=== PATIENT | female | born 1970 | race Hispanic/Latino ===

== ENCOUNTER 2019-09-20 11:17 | Emergency (ER) | payer OTHER, SELFPAY ==
[2019-09-20 11:19] VITALS: BP 158/75; PULSE 85; RESP 16; TEMP 36.8; O2SAT 100; BMI 35.6
--- NOTE | 2019-09-20 11:40 | CT_ITS ---
STUDY: CTA HEAD AND NECK WITH CONTRAST REASON FOR EXAM: Female, 49 years old. LEFT SIDED NUMBNESS, NUMB TONGUE SINCE YESTERDAY, HASN''T FELT RIGHT FOR 2 WEEKS. RADIATION DOSAGE (If Supplied By Facility): CTDIvol = ( 25.50 ) mGy, DLP = ( 1440.24 ) mGycm TECHNIQUE: CT angiography was performed with a multi-detector CT scanner. Data acquisition was obtained from the skull base through the vertex following intravenous administration of IV 100 ML ISOVUE 370. MIP images were reconstructed from the axial data set. Post-processing of the angiographic images was performed, with multiplanar reformation and 3D reconstruction. Individualized dose optimization techniques were used for this CT. COMPARISON: No relevant priors. FINDINGS: Normal bilateral petrous carotid arteries. Normal right cavernous carotid artery with a normal supraclinoid bifurcation. Normal left cavernous carotid artery with a normal supraclinoid bifurcation. Normal right A1 segments of the anterior cerebral artery. Normal left A1 segments of the anterior cerebral artery. Normal intact anterior communicating artery (ACOM). Normal bilateral A2 segments of the anterior cerebral arteries. Normal right M1 and M2 segments of the middle cerebral arteries, with a normal M1 bifurcation. Normal left M1 and M2 segments of the middle cerebral arteries, with a normal M1 bifurcation. Normal right posterior communicating artery (PCOM). Normal left posterior communicating artery (PCOM). Normal bilateral vertebral arteries. Normal basilar artery with a normal basilar bifurcation. The visualized bilateral superior cerebellar (SCA) arteries are normal. Normal bilateral P1, P2 and visualized P3 segments of the posterior cerebral arteries. There is no demonstrated aneurysm of the [place] of [place]. There is no demonstrated abnormality of the visualized brain. AORTIC ARCH: Normal visualized aortic arch. Normal origins of the brachiocephalic, left common carotid, and left subclavian arteries. RIGHT CAROTID ARTERIES: Normal right common carotid artery (CCA). Normal right common carotid bulb. Normal origin of the right internal carotid (ICA) artery without a hemodynamically significant stenosis. Normal visualized cervical portion of the right internal carotid artery. Normal origin of the right external carotid artery (ECA). LEFT CAROTID ARTERIES: Normal left common carotid artery (CCA). Normal left common carotid bulb. Normal origin of the left internal carotid (ICA) artery without a hemodynamically significant stenosis. Normal visualized cervical portion of the left internal carotid artery. Normal origin of the left external carotid artery (ECA). VERTEBRAL ARTERIES: Normal bilateral vertebral arteries. CT/CTA Head AND Neck W/ Contrast IMPRESSION: Normal CTA Head and neck with contrast. Electronically Signed: Armin Crook, at 12:45 EST , Service support ,
--- NOTE | 2019-09-20 11:40 | EKG12_ITS ---
Test Reason : Blood Pressure : / mmHG Vent. Rate : 086 BPM Atrial Rate : 086 BPM P-R Int : 138 ms QRS Dur : 084 ms QT Int : 372 ms P-R-T Axes : 036 044 -07 degrees QTc Int : 445 ms Normal sinus rhythm ST & T wave abnormality, consider anterior ischemia Abnormal ECG Confirmed by SRAVAN MATHEWS, KANA ([id number]), film and video editor NITESH RABAGO ([id number]) on 09/24/2019 12:19:40 PM Referred By: [facility] Confirmed By:KANA HINSON MD
--- NOTE | 2019-09-20 11:46 | ED.DCSUM_ITS ---
- ER Visit Summary Date of Service: 09/20/19 Chief Complaint: Left-sided facial tingling History of Present Illness: The patient is a 49 F female without any significant past medical history that does not speak [place]. Her friend is here with her as an corporate general manager. He states the last couple weeks she has had subjective tingling left side of her face hand and foot. No weakness. No change in her speech. No visual change. No facial droop. She is also had some mild headaches. No recent trauma. No fever. No difficulty walking. No prior history. Physical Examination: Middle-aged female no acute distress vital signs stable afebrile. H EENT exam normal. Pupils are unreactive light. Extra motions are intact. No facial droop. She is able to wrinkle her forehead. She is able to smile symmetrically on both sides. Subjectively she states that this sensation on left side of her face is decreased compared to the right. TMs normal. Posterior pharynx normal. Neck nontender. No lymphadenopathy. Lungs clear to auscultation bilaterally. Heart regular rhythm no murmur. Abdomen is soft nontender. Normal bowel sounds no peritoneal signs. Extremities moves all 4. 5/5 trolley cleaner strength bilaterally. Dorsi plantarflexion intact. Fingertip to nose within normal limits bilaterally. [id number]-upls within normal limits bilaterally. Back exam unremarkable skin unremarkable. Neurologically her NIH score is 0-1 at worst. And that would be with subjective decreased sensation on left side of her face. There are absolutely no motor deficits. No ataxia. Test Results: EKG normal sinus rhythm rate 86 no acute abnormality. CTA of the neck read as normal by the radiologist and reviewed by me. CBC normal. Chemistries unremarkable. Glucose 166. Normal gap and creatinine. Emergency Department Course and Treatment: Middle-aged female with subjective left-sided tingling and possibly decreased sensation. No motor deficits. She will undergo a CTA of her head and neck and labs. Stanley exam doing well at 12:56 PM. Neurologic exam normal. No change in her findings. No facial droop. Normal motor strength both upper and lower extremities. Treatment Plan: Outpatient follow-up. Disposition: Discharge Impression: Subjective left sided paresthesia of uncertain etiology This note was generated with [employer] software. It may contain incorrect words, spelling, and punctuation that were not noted in review of the chart prior to signing ED Disposition - Plan for ED Patient: Referrals: Juan Robins,Samantha Boswell [Primary Care Provider] -
[2019-09-20] MEDS: 0.9% Normal Saline 1,000 ML 999 ML IV (11:58)
[2019-09-20 12:11] LABS: Absolute Lymphocyte Count 2.45 X10^3/uL (0.83-4.51); Absolute Neutrophil Count 4.5 X10^3/uL (2.0-7.7); Basophil# 0.04 X10^3/uL; Basophil% 0.5 % (0-1); Eosinophil# 0.15 X10^3/uL; Hematocrit 40.6 % (37-47); Hemoglobin 13.6 g/dL (12.0-15.0); Lymphocyte # 2.45 X10^3/ul (4.0); Lymphocyte % 32.7 % (19-41); Mean Corp Hgb Conc 33.5 g/dL (32-36); Mean Corpuscular Hgb 31.3 pg (27.0-32.0); Mean Corpuscular Volume 93.5 fL (81-99); Mean Platelet Vol. 10.1 fl (6.2-12.0); Monocyte# 0.39 X10^3/uL; Monocyte% 5.2 % (0-10); NRBC Flagged by Analyzer 0 % (0-5); Neutrophil # 4.45 X10^3/uL (2.7-7.7); Neutrophil % 59.3 % (47-70); Platelet Count 309 K/mm3 (150-450); RBC Distribution Width SD 41.8 fl (35.1-43.9); Red Blood Count 4.34 M/mm3 (4.2-5.4); White Blood Count 7.5 K/mm3 (4.4-11.0)
[2019-09-20 12:16] LABS: Anion Gap 5 (5-15); BUN 12 mg/dL (7-18); BUN/Creat Ratio 14.6 RATIO (10-20); Calcium,Total 8.6 mg/dL (8.5-10.1); Chloride 106 mmol/L (98-107); Creatinine, Serum 0.82 mg/dL (0.55-1.02); EST Glomerular Filtration Rate 79 mL/min (>60); Est Glom Filt Rate - Afr Amer 95 mL/min (>60); Estimated Creatinine Clearance 60.92 ml/min; Glucose 166 mg/dL (74-106); Potassium 3.8 mmol/L (3.5-5.1); Sodium Level 138 mmol/L (136-145)
--- NOTE | 2019-09-20 12:56 | DCINST.ED_ITS ---
ED Disposition - Plan for ED Patient: Disposition: Home or Assisted Living Instructions: Paraesthesias Referrals: Juan Robins,Samantha Boswell [Primary Care Provider] - 1 Week Additional Instructions: Return if you are feeling worse or develop weakness. All your tests today including your CAT scan of your head and neck were both normal. Follow-up with your doctor for further evaluation if this does not resolve. Print Language: Indonesian
[2019-09-20 13:13] VITALS: BP 143/69; PULSE 88; RESP 18
== END 2019-09-20 13:15 | disposition home or self-care (01) ==
PROVIDERS: Emergency Provider Emergency Medicine
DX: R20.2 Paresthesia of skin (principal)
CPT/HCPCS: 70496; 70498; 80048; 85025; 93005; 96360; 99285; J7030; Q9967; A4216